=== PATIENT | female | born 1940 | race Caucasian/White ===

== ENCOUNTER 2022-12-02 11:35 | Inpatient (IN) | payer OTHER, MEDICAID ==
[2022-12-02] VITALS (9 sets, daily range): BP systolic 72–102; BP diastolic 40–60; PULSE 60–84; RESP 16–18; TEMP 97.4–98.7; O2SAT 92–99
[~2022-12-02] VITALS: Ht 162.6 cm; Wt 72.1 kg
[2022-12-02] MEDS ORDERED: NACL 0.9% 1,000 ML IV SCH (11:55)
[2022-12-02] MEDS ORDERED: cefTRIAXone 1,000 MG in DEXT 5% MINI-BAG PLUS 50 ML IV ONE (11:55)
[2022-12-02] MEDS ORDERED: cefTRIAXone 1,000 MG VIAL ONE (12:27)
[2022-12-02 12:38] LABS: BASOPHILS % (AUTO) 0.3 % (0.0-2.0); HEMATOCRIT 42.5 % (36-48); HEMOGLOBIN 14.2 g/dL (12.0-16.0); LYMPHOCYTES # (AUTO) 1.2 K/uL (2.5-16.5); LYMPHOCYTES % (AUTO) 15.5 % (20.5-51.1); MEAN CORPUSCULAR HEMOGLOBIN 30 pg (27-31); MEAN CORPUSCULAR HGB CONC 34 g/dL (33-37); MEAN CORPUSCULAR VOLUME 89.3 fL (80-94); MONOCYTES # (AUTO) 0.6 K/uL (0.8-1.0); MONOCYTES % (AUTO) 8.1 % (1.7-9.3); NEUTROPHILS % (AUTO) 76.1 % (42.2-75.2); PLATELET COUNT (AUTO) 116 K/uL (140-450); RED BLOOD CELL COUNT(AUTO) 4.76 MIL/uL (4.20-5.40); RED CELL DISTRIBUTION WIDTH 15.1 % (11.6-13.7); WHITE BLOOD COUNT (AUTO) 7.9 K/uL (4.8-10.8)
[2022-12-02 12:55] LABS: ALANINE AMINOTRANSFERASE 22 U/L (12-78); ALKALINE PHOSPHATASE 93 U/L (50-136); ANION GAP 13.2 (8-16); ASPARTATE AMINOTRANSFERASE 57 U/L (15-37); CALCIUM 8.8 mg/dL (8.5-10.1); CARBON DIOXIDE 30.1 mmol/L (21-32); CHLORIDE 89 mmol/L (98-107); CREATININE 3.4 mg/dL (0.6-1.3); GLUCOSE 110 mg/dL (74-106); POTASSIUM 5.3 mmol/L (3.5-5.1); SODIUM SERUM 127 mmol/L (136-145); TOTAL BILIRUBIN 0.7 mg/dL (0.0-1.0); TOTAL PROTEIN, SERUM 9.4 g/dL (6.4-8.2)
[2022-12-02 13:21] LABS: FLU A ANTIGEN negative (NEGATIVE); FLU B ANTIGEN NEGATIVE (NEGATIVE)
[2022-12-02 13:27] LABS: UREA NITROGEN, BLOOD 76 mg/dL (7-18)
[2022-12-02 13:33] LABS: INR 1.22 (0.8-1.2); PARTIAL THROMBOPLASTIN TIME 41.6 secs (22-35.6); PROTHROMBIN TIME 12.7 secs (10.8-13.4)
[2022-12-02] MEDS ORDERED: NACL 0.9% 1,000 ML IV ONE (14:10)
[2022-12-02] MEDS ORDERED: SODIUM ZIRCONIUM CYCLOSILICATE 10 GM POWD.PACK PO ONE (14:10)
[2022-12-02] MEDS ORDERED: ASPIRIN 81 MG TAB.CHEW PO ONE (14:20)
[2022-12-02] MEDS ORDERED: MAG SULF 2000 MG/WATER PREMIX 50 ML IV PRN (15:05)
[2022-12-02] MEDS ORDERED: ACETAMINOPHEN 325 MG TAB PO PRN (15:05)
[2022-12-02] MEDS ORDERED: DOCUSATE SODIUM 100 MG GELCAP PO PRN (15:05)
[2022-12-02] MEDS ORDERED: ZOLPIDEM 10 MG TAB PO PRN (15:05)
[2022-12-02] MEDS ORDERED: POTASSIUM CHLORIDE 10 MEQ TABER PO PRN (15:05)
[2022-12-02] MEDS ORDERED: LORazepam 2 MG/ML VIAL IVP PRN (15:05)
[2022-12-02] MEDS ORDERED: ONDANSETRON 4 MG/2 ML VIAL IVP PRN (15:05)
[2022-12-02] MEDS ORDERED: MORPHINE SULFATE 2 MG/ML SYR IVP PRN (15:05)
[2022-12-02] MEDS ORDERED: DEXTROSE 50% 50 ML SYR IVP PRN (15:10)
[2022-12-02] MEDS ORDERED: FUROSEMIDE 40 MG/4 ML VIAL IVP SCH (15:25)
[2022-12-02] MEDS ORDERED: SODIUM ZIRCONIUM CYCLOSILICATE 10 GM POWD.PACK PO SCH (15:27)
[2022-12-02] MEDS ORDERED: ASPIRIN 81 MG TAB.CHEW ONE (15:55)
[2022-12-02] MEDS: BLOOD GLUCOSE MONITORING 1 DEV DEV FS SCH ×2 (16:36→21:43)
[2022-12-02] MEDS ORDERED: LYR25 PO (17:07)
[2022-12-02] MEDS ORDERED: GABA300C PO (17:07)
[2022-12-02] MEDS ORDERED: DOCU-2 PO (17:07)
[2022-12-02] MEDS ORDERED: [UNRECOGNIZED DRUG - CODE] PO (17:07)
[2022-12-02] MEDS ORDERED: METO50TA20 PO (17:07)
[2022-12-02] MEDS ORDERED: DEXT1DRO4 OP (17:07)
[2022-12-02] MEDS ORDERED: INSU100V19 SQ (17:07)
[2022-12-02] MEDS ORDERED: CHOL400T PO (17:07)
[2022-12-02] MEDS ORDERED: SENN-72 PO (17:07)
[2022-12-02] MEDS ORDERED: LEVO25CA2 PO (17:07)
[2022-12-02] MEDS ORDERED: TRAZ-344 PO (17:07)
[2022-12-02] MEDS ORDERED: HUM SUBQ (17:07)
[2022-12-02] MEDS ORDERED: FURO-570 PO (17:07)
[2022-12-02] MEDS ORDERED: ROPI1TAB40 PO (17:07)
[2022-12-02] MEDS ORDERED: ACET-8905 PO (17:07)
[2022-12-02] MEDS: PIPERACILLIN/TAZOBACTAM 2.25 GM in DEXTROSE 5% 50 ML IV SCH (21:45)
[2022-12-03] VITALS (11 sets, daily range): BP systolic 112–149; BP diastolic 64–95; PULSE 61–88; RESP 15–20; TEMP 96.9–98.7; O2SAT 95–100
[2022-12-03] MEDS: PIPERACILLIN/TAZOBACTAM 2.25 GM in DEXTROSE 5% 50 ML IV SCH ×3 (05:36→20:59)
[2022-12-03] MEDS: BLOOD GLUCOSE MONITORING 1 DEV DEV FS SCH ×4 (06:40→21:07)
[2022-12-03 06:58] LABS: BASOPHILS % (AUTO) 0.3 % (0.0-2.0); EOSINOPHILS % (AUTO) 0.1 % (0.0-4.0); HEMATOCRIT 40.7 % (36-48); HEMOGLOBIN 13.5 g/dL (12.0-16.0); LYMPHOCYTES # (AUTO) 1.3 K/uL (2.5-16.5); LYMPHOCYTES % (AUTO) 23.2 % (20.5-51.1); MEAN CORPUSCULAR HEMOGLOBIN 30 pg (27-31); MEAN CORPUSCULAR HGB CONC 33 g/dL (33-37); MEAN CORPUSCULAR VOLUME 90.4 fL (80-94); MONOCYTES # (AUTO) 0.5 K/uL (0.8-1.0); MONOCYTES % (AUTO) 9.3 % (1.7-9.3); NEUTROPHILS # (AUTO) 3.7 K/uL (1.8-7.7); NEUTROPHILS % (AUTO) 67.1 % (42.2-75.2); PLATELET COUNT (AUTO) 94 K/uL (140-450); RED CELL DISTRIBUTION WIDTH 15.5 % (11.6-13.7); WHITE BLOOD COUNT (AUTO) 5.4 K/uL (4.8-10.8)
[2022-12-03 07:09] LABS: ANION GAP 11.2 (8-16); CALCIUM 8.4 mg/dL (8.5-10.1); CHLORIDE 95 mmol/L (98-107); CREATININE 3.3 mg/dL (0.6-1.3); GLUCOSE 133 mg/dL (74-106); POTASSIUM 3.2 mmol/L (3.5-5.1); SODIUM SERUM 135 mmol/L (136-145)
[2022-12-03 07:14] LABS: UREA NITROGEN, BLOOD 79 mg/dL (7-18)
[2022-12-03] MEDS: ASPIRIN 81 MG TAB.CHEW PO SCH (09:18)
[2022-12-03] MEDS: INSULIN LISPRO SLIDING SCALE 100 UNITS/ML VIAL SUBQ PRN (11:29)
[2022-12-03 20:59] LABS: MAGNESIUM 1.7 mg/dL (1.8-2.4); PHOSPHORUS 4.6 mg/dL (2.5-4.9)
[2022-12-03] MEDS: rOPINIRole 1 MG TAB PO SCH (21:00)
[2022-12-03] MEDS ORDERED: FUROSEMIDE 40 MG TAB PO SCH (21:00)
[2022-12-03] MEDS: traZODone 50 MG TAB PO SCH (21:00)
[2022-12-03] MEDS: GABAPENTIN 300 MG CAP PO SCH (21:01)
[2022-12-03] MEDS: SENNA 8.6 MG TAB PO SCH (21:01)
[2022-12-04] VITALS (7 sets, daily range): BP systolic 117–148; BP diastolic 71–83; PULSE 78–98; RESP 18–19; TEMP 97.4–99.4; O2SAT 96–99
[2022-12-04 01:21] LABS: APPEARANCE,URINE CLEAR (CLEAR); BILIRUBIN,URINE NEGATIVE (NEGATIVE); BLOOD, URINE 1+ (NEGATIVE); COLOR,URINE YELLOW (YELLOW); LEUKOCYTE ESTERASE ,URINE 3+ (NEGATIVE); NITRITE, URINE NEGATIVE (NEGATIVE); PH,URINE 6.5 (5.0-9.0); PROTEIN,URINE 1+ (NEGATIVE); UGLUCOSE NEGATIVE (NEGATIVE); UROBILINOGEN,URINE 0.2 EU/dL (0.2 - 1)
[2022-12-04 01:28] LABS: RBC,URINE 11-20 (MOD) /HPF (0-5); WBC,URINE 80-100 /HPF (0-5)
[2022-12-04 01:29] LABS: BACTERIA,URINE 1+ /HPF (None Seen); MUCUS,URINE 2+ /LPF (None Seen); SQUAMOUS EPITHELIAL CELL,UR 0-3 (FEW) /LPF (0-3 (FEW)); TRICHOMONAS,URINE None Seen /HPF (None Seen); YEAST,URINE None Seen /HPF (None Seen)
[2022-12-04] MEDS: PIPERACILLIN/TAZOBACTAM 2.25 GM in DEXTROSE 5% 50 ML IV SCH ×3 (05:48→20:54)
[2022-12-04] MEDS: BLOOD GLUCOSE MONITORING 1 DEV DEV FS SCH ×4 (06:44→20:54)
[2022-12-04 07:37] LABS: BASOPHILS % (AUTO) 0.4 % (0.0-2.0); EOSINOPHILS % (AUTO) 0.3 % (0.0-4.0); HEMATOCRIT 42.3 % (36-48); HEMOGLOBIN 14.3 g/dL (12.0-16.0); LYMPHOCYTES # (AUTO) 1.4 K/uL (2.5-16.5); LYMPHOCYTES % (AUTO) 30.1 % (20.5-51.1); MEAN CORPUSCULAR HEMOGLOBIN 30 pg (27-31); MEAN CORPUSCULAR HGB CONC 34 g/dL (33-37); MEAN CORPUSCULAR VOLUME 89.4 fL (80-94); MONOCYTES # (AUTO) 0.5 K/uL (0.8-1.0); MONOCYTES % (AUTO) 10.6 % (1.7-9.3); NEUTROPHILS # (AUTO) 2.8 K/uL (1.8-7.7); NEUTROPHILS % (AUTO) 58.6 % (42.2-75.2); PLATELET COUNT (AUTO) 91 K/uL (140-450); RED BLOOD CELL COUNT(AUTO) 4.73 MIL/uL (4.20-5.40); RED CELL DISTRIBUTION WIDTH 15.3 % (11.6-13.7); WHITE BLOOD COUNT (AUTO) 4.7 K/uL (4.8-10.8)
[2022-12-04 08:03] LABS: ANION GAP 12.1 (8-16); CALCIUM 8.7 mg/dL (8.5-10.1); CARBON DIOXIDE 30.9 mmol/L (21-32); CHLORIDE 93 mmol/L (98-107); CREATININE 2.8 mg/dL (0.6-1.3); GLUCOSE 103 mg/dL (74-106); SODIUM SERUM 132 mmol/L (136-145)
[2022-12-04 08:05] LABS: UREA NITROGEN, BLOOD 64 mg/dL (7-18)
[2022-12-04] MEDS: GABAPENTIN 300 MG CAP PO SCH ×2 (08:48→20:55)
[2022-12-04] MEDS: METOPROLOL 50 MG TAB PO SCH (08:48)
[2022-12-04] MEDS: PREGABALIN 25 MG CAP PO SCH (08:48)
[2022-12-04] MEDS: ASPIRIN 81 MG TAB.CHEW PO SCH (08:49)
[2022-12-04] MEDS: rOPINIRole 1 MG TAB PO SCH ×4 (08:49→20:56)
[2022-12-04] MEDS: FUROSEMIDE 40 MG/4 ML VIAL IVP SCH ×2 (09:34→16:51)
[2022-12-04 10:02] LABS: BLOOD GAS PCO2 43.6 mmHg (35-45); BLOOD GAS PH 7.413 (7.35-7.45)
[2022-12-04 10:03] LABS: BLOOD GAS BASE EXCESS 2.2 mmol/L (-2.0-2.0); BLOOD GAS HCO3 27.2 mmol/L (22-26); BLOOD GAS PO2 53.6 mmHg (75-100)
[2022-12-04 10:04] LABS: BLOOD GAS O2 SAT% 89.7 % (92.0-98.5)
[2022-12-04] MEDS: INSULIN LISPRO SLIDING SCALE 100 UNITS/ML VIAL SUBQ PRN (11:32)
[2022-12-04] MEDS: traZODone 50 MG TAB PO SCH (20:54)
[2022-12-04] MEDS: SENNA 8.6 MG TAB PO SCH (20:55)
[2022-12-05 04:00] VITALS: BP 128/68; PULSE 81; RESP 18; TEMP 98.6; O2SAT 98
[2022-12-05] MEDS: PIPERACILLIN/TAZOBACTAM 2.25 GM in DEXTROSE 5% 50 ML IV SCH ×3 (04:43→20:51)
[2022-12-05] MEDS: BLOOD GLUCOSE MONITORING 1 DEV DEV FS SCH ×4 (06:31→20:50)
[2022-12-05 06:41] LABS: ANION GAP 10.6 (8-16); CALCIUM 8.6 mg/dL (8.5-10.1); CARBON DIOXIDE 32.5 mmol/L (21-32); CHLORIDE 92 mmol/L (98-107); GLUCOSE 109 mg/dL (74-106); POTASSIUM 4.1 mmol/L (3.5-5.1); SODIUM SERUM 131 mmol/L (136-145)
[2022-12-05 06:44] LABS: UREA NITROGEN, BLOOD 62 mg/dL (7-18)
[2022-12-05 06:53] LABS: BASOPHILS % (AUTO) 0.3 % (0.0-2.0); EOSINOPHILS % (AUTO) 0.1 % (0.0-4.0); HEMATOCRIT 41.4 % (36-48); HEMOGLOBIN 13.9 g/dL (12.0-16.0); LYMPHOCYTES # (AUTO) 1.5 K/uL (2.5-16.5); MEAN CORPUSCULAR HEMOGLOBIN 30 pg (27-31); MEAN CORPUSCULAR HGB CONC 34 g/dL (33-37); MEAN CORPUSCULAR VOLUME 90.1 fL (80-94); MONOCYTES # (AUTO) 0.5 K/uL (0.8-1.0); MONOCYTES % (AUTO) 13.5 % (1.7-9.3); NEUTROPHILS # (AUTO) 1.7 K/uL (1.8-7.7); NEUTROPHILS % (AUTO) 46.1 % (42.2-75.2); PLATELET COUNT (AUTO) 78 K/uL (140-450); RED BLOOD CELL COUNT(AUTO) 4.59 MIL/uL (4.20-5.40); RED CELL DISTRIBUTION WIDTH 15.1 % (11.6-13.7); WHITE BLOOD COUNT (AUTO) 3.7 K/uL (4.8-10.8)
[2022-12-05 08:00] VITALS: PULSE 85; RESP 18; O2SAT 96
[2022-12-05] MEDS: PREGABALIN 25 MG CAP PO SCH (09:55)
[2022-12-05] MEDS: GABAPENTIN 300 MG CAP PO SCH ×2 (09:55→20:51)
[2022-12-05] MEDS: FUROSEMIDE 40 MG/4 ML VIAL IVP SCH (09:55)
[2022-12-05] MEDS: ASPIRIN 81 MG TAB.CHEW PO SCH (09:55)
[2022-12-05] MEDS: METOPROLOL 50 MG TAB PO SCH (09:55)
[2022-12-05] MEDS: rOPINIRole 1 MG TAB PO SCH ×4 (10:08→20:52)
[2022-12-05 13:45] VITALS: PULSE 59; RESP 24; O2SAT 96
[2022-12-05] MEDS: ALBUTEROL 0.083% 2.5 MG/3 ML NEBU INH PRN ×2 (13:45→19:14)
[2022-12-05 19:14] VITALS: PULSE 77; RESP 22; O2SAT 97
[2022-12-05 20:00] VITALS: BP 123/53; PULSE 78; PULSE 85; RESP 18; TEMP 97.4; O2SAT 100
[2022-12-05] MEDS: traZODone 50 MG TAB PO SCH (20:51)
[2022-12-05] MEDS: SENNA 8.6 MG TAB PO SCH (20:54)
[2022-12-06 04:00] VITALS: BP 120/77; PULSE 80; RESP 18; TEMP 97.3; O2SAT 97
[2022-12-06] MEDS: PIPERACILLIN/TAZOBACTAM 2.25 GM in DEXTROSE 5% 50 ML IV SCH ×3 (04:23→20:33)
[2022-12-06] MEDS: LEVOTHYROXINE 0.025 MG TAB PO SCH (05:37)
[2022-12-06] MEDS: BLOOD GLUCOSE MONITORING 1 DEV DEV FS SCH ×4 (06:22→20:26)
[2022-12-06 06:35] LABS: ANION GAP 10.9 (8-16); CALCIUM 8.7 mg/dL (8.5-10.1); CARBON DIOXIDE 32.5 mmol/L (21-32); CHLORIDE 91 mmol/L (98-107); CREATININE 3.3 mg/dL (0.6-1.3); GLUCOSE 98 mg/dL (74-106); POTASSIUM 4.4 mmol/L (3.5-5.1); SODIUM SERUM 130 mmol/L (136-145)
[2022-12-06 06:38] LABS: BASOPHILS % (AUTO) 0.3 % (0.0-2.0); EOSINOPHILS % (AUTO) 0.1 % (0.0-4.0); HEMOGLOBIN 13.6 g/dL (12.0-16.0); LYMPHOCYTES # (AUTO) 1.4 K/uL (2.5-16.5); LYMPHOCYTES % (AUTO) 44.6 % (20.5-51.1); MEAN CORPUSCULAR HEMOGLOBIN 30 pg (27-31); MEAN CORPUSCULAR HGB CONC 33 g/dL (33-37); MONOCYTES # (AUTO) 0.4 K/uL (0.8-1.0); MONOCYTES % (AUTO) 13.3 % (1.7-9.3); NEUTROPHILS # (AUTO) 1.3 K/uL (1.8-7.7); NEUTROPHILS % (AUTO) 41.7 % (42.2-75.2); PLATELET COUNT (AUTO) 76 K/uL (140-450); RED BLOOD CELL COUNT(AUTO) 4.56 MIL/uL (4.20-5.40); RED CELL DISTRIBUTION WIDTH 15.2 % (11.6-13.7); WHITE BLOOD COUNT (AUTO) 3.1 K/uL (4.8-10.8)
[2022-12-06 06:41] LABS: UREA NITROGEN, BLOOD 66 mg/dL (7-18)
[2022-12-06 08:00] VITALS: PULSE 83; RESP 18; O2SAT 98
[2022-12-06] MEDS: ASPIRIN 81 MG TAB.CHEW PO SCH (08:35)
[2022-12-06] MEDS: METOPROLOL 50 MG TAB PO SCH (08:36)
[2022-12-06] MEDS: PANTOPRAZOLE 40 MG TABEC PO SCH (08:36)
[2022-12-06] MEDS: GABAPENTIN 300 MG CAP PO SCH ×2 (08:36→20:27)
[2022-12-06] MEDS: PREGABALIN 25 MG CAP PO SCH (08:36)
[2022-12-06] MEDS: rOPINIRole 1 MG TAB PO SCH ×4 (08:38→20:29)
[2022-12-06] MEDS ORDERED: FUROSEMIDE 40 MG/4 ML VIAL IVP SCH ×2 (09:00→17:00)
[2022-12-06] MEDS: INSULIN LISPRO SLIDING SCALE 100 UNITS/ML VIAL SUBQ PRN ×2 (12:11→20:27)
[2022-12-06 17:04] VITALS: PULSE 75; RESP 18; O2SAT 96
[2022-12-06] MEDS: ALBUTEROL 0.083% 2.5 MG/3 ML NEBU INH PRN (17:04)
[2022-12-06 20:00] VITALS: BP 116/56; PULSE 80; PULSE 83; RESP 18; TEMP 97.2; O2SAT 96
[2022-12-06] MEDS: ISOSORBIDE DINITRATE 10 MG TAB PO SCH (20:27)
[2022-12-06] MEDS: hydrALAZINE 10 MG TAB PO SCH (20:28)
[2022-12-06] MEDS: APIXABAN 2.5 MG TAB PO SCH ×2 (20:28→20:33)
[2022-12-06] MEDS: SENNA 8.6 MG TAB PO SCH (20:28)
[2022-12-06] MEDS: traZODone 50 MG TAB PO SCH (20:29)
[2022-12-07] VITALS (7 sets, daily range): BP systolic 95–108; BP diastolic 49–65; PULSE 56–74; RESP 18–20; TEMP 96.3–97.8; O2SAT 94–99
[2022-12-07] MEDS: PIPERACILLIN/TAZOBACTAM 2.25 GM in DEXTROSE 5% 50 ML IV SCH (04:58)
[2022-12-07] MEDS: hydrALAZINE 10 MG TAB PO SCH ×3 (04:58→20:45)
[2022-12-07] MEDS: ISOSORBIDE DINITRATE 10 MG TAB PO SCH ×3 (04:58→20:46)
[2022-12-07] MEDS: LEVOTHYROXINE 0.025 MG TAB PO SCH (05:39)
[2022-12-07] MEDS: BLOOD GLUCOSE MONITORING 1 DEV DEV FS SCH ×4 (06:33→20:45)
[2022-12-07 07:17] LABS: BASOPHILS % (AUTO) 0.2 % (0.0-2.0); HEMATOCRIT 37.7 % (36-48); HEMOGLOBIN 12.5 g/dL (12.0-16.0); LYMPHOCYTES # (AUTO) 1.5 K/uL (2.5-16.5); LYMPHOCYTES % (AUTO) 43.4 % (20.5-51.1); MEAN CORPUSCULAR HEMOGLOBIN 30 pg (27-31); MEAN CORPUSCULAR HGB CONC 33 g/dL (33-37); MONOCYTES # (AUTO) 0.4 K/uL (0.8-1.0); MONOCYTES % (AUTO) 11.7 % (1.7-9.3); NEUTROPHILS # (AUTO) 1.5 K/uL (1.8-7.7); NEUTROPHILS % (AUTO) 44.7 % (42.2-75.2); PLATELET COUNT (AUTO) 85 K/uL (140-450); RED BLOOD CELL COUNT(AUTO) 4.19 MIL/uL (4.20-5.40); WHITE BLOOD COUNT (AUTO) 3.4 K/uL (4.8-10.8)
[2022-12-07 07:18] LABS: ANION GAP 10.2 (8-16); CALCIUM 8.5 mg/dL (8.5-10.1); CARBON DIOXIDE 32.1 mmol/L (21-32); CHLORIDE 91 mmol/L (98-107); GLUCOSE 117 mg/dL (74-106); POTASSIUM 4.3 mmol/L (3.5-5.1); SODIUM SERUM 129 mmol/L (136-145)
[2022-12-07 07:40] LABS: UREA NITROGEN, BLOOD 76 mg/dL (7-18)
[2022-12-07 07:41] LABS: CREATININE 4.1 mg/dL (0.6-1.3)
[2022-12-07] MEDS: APIXABAN 2.5 MG TAB PO SCH ×3 (09:00→20:45)
[2022-12-07] MEDS: METOPROLOL SUCCINATE 50 MG TABER PO SCH (09:00)
[2022-12-07] MEDS: PREGABALIN 25 MG CAP PO SCH (09:01)
[2022-12-07] MEDS: rOPINIRole 1 MG TAB PO SCH ×4 (09:01→20:47)
[2022-12-07] MEDS: PANTOPRAZOLE 40 MG TABEC PO SCH (09:02)
[2022-12-07] MEDS: ALBUTEROL 0.083% 2.5 MG/3 ML NEBU INH PRN ×2 (10:58→11:37)
[2022-12-07] MEDS: INSULIN LISPRO SLIDING SCALE 100 UNITS/ML VIAL SUBQ PRN (12:12)
[2022-12-07] MEDS: AMOXICILLIN 500 MG CAP PO SCH (20:42)
[2022-12-07] MEDS: SENNA 8.6 MG TAB PO SCH (20:42)
[2022-12-07] MEDS: traZODone 50 MG TAB PO SCH (20:45)
[2022-12-08 04:00] VITALS: BP 128/77; PULSE 100; RESP 18; TEMP 97.5; O2SAT 99
[2022-12-08] MEDS: hydrALAZINE 10 MG TAB PO SCH ×2 (05:30→13:14)
[2022-12-08] MEDS: ISOSORBIDE DINITRATE 10 MG TAB PO SCH ×2 (05:30→13:14)
[2022-12-08] MEDS: LEVOTHYROXINE 0.025 MG TAB PO SCH (05:32)
[2022-12-08] MEDS: BLOOD GLUCOSE MONITORING 1 DEV DEV FS SCH ×2 (06:38→11:59)
[2022-12-08 06:56] LABS: BASOPHILS % (AUTO) 0.3 % (0.0-2.0); EOSINOPHILS % (AUTO) 0.4 % (0.0-4.0); HEMATOCRIT 52.4 % (36-48); HEMOGLOBIN 17.1 g/dL (12.0-16.0); LYMPHOCYTES # (AUTO) 1.5 K/uL (2.5-16.5); LYMPHOCYTES % (AUTO) 51.9 % (20.5-51.1); MEAN CORPUSCULAR HEMOGLOBIN 30 pg (27-31); MEAN CORPUSCULAR HGB CONC 33 g/dL (33-37); MEAN CORPUSCULAR VOLUME 90.1 fL (80-94); MONOCYTES # (AUTO) 0.3 K/uL (0.8-1.0); NEUTROPHILS # (AUTO) 1.1 K/uL (1.8-7.7); NEUTROPHILS % (AUTO) 38.4 % (42.2-75.2); PLATELET COUNT (AUTO) 58 K/uL (140-450); RED BLOOD CELL COUNT(AUTO) 5.81 MIL/uL (4.20-5.40); RED CELL DISTRIBUTION WIDTH 15.4 % (11.6-13.7); WHITE BLOOD COUNT (AUTO) 2.9 K/uL (4.8-10.8)
[2022-12-08 07:24] LABS: ANION GAP 11.9 (8-16); CALCIUM 8.9 mg/dL (8.5-10.1); CARBON DIOXIDE 31.4 mmol/L (21-32); CHLORIDE 91 mmol/L (98-107); CREATININE 3.8 mg/dL (0.6-1.3); GLUCOSE 115 mg/dL (74-106); POTASSIUM 4.3 mmol/L (3.5-5.1); SODIUM SERUM 130 mmol/L (136-145)
[2022-12-08 07:29] LABS: UREA NITROGEN, BLOOD 77 mg/dL (7-18)
[2022-12-08 08:00] VITALS: PULSE 58; RESP 18; O2SAT 94
[2022-12-08 08:41] VITALS: O2SAT 100
[2022-12-08 09:00] VITALS: PULSE 58; RESP 18; O2SAT 100
[2022-12-08] MEDS: AMOXICILLIN 500 MG CAP PO SCH (09:17)
[2022-12-08] MEDS: PREGABALIN 25 MG CAP PO SCH (09:17)
[2022-12-08] MEDS: METOPROLOL SUCCINATE 50 MG TABER PO SCH (09:18)
[2022-12-08] MEDS: PANTOPRAZOLE 40 MG TABEC PO SCH (09:18)
[2022-12-08] MEDS: rOPINIRole 1 MG TAB PO SCH ×2 (09:19→13:14)
[2022-12-08] MEDS ORDERED: APR10 PO (10:41)
[2022-12-08] MEDS ORDERED: GABA300C PO (10:41)
[2022-12-08] MEDS ORDERED: ISOS10TA9 PO (10:41)
[2022-12-08] MEDS ORDERED: HUMSLIDE SUBQ (10:41)
[2022-12-08] MEDS ORDERED: AMOX500C25 PO (10:41)
[2022-12-08] MEDS ORDERED: APIX2.5 PO (10:41)
[2022-12-08 10:53] LABS: BASOPHILS % (AUTO) 0.3 % (0.0-2.0); EOSINOPHILS % (AUTO) 0.5 % (0.0-4.0); HEMATOCRIT 37.1 % (36-48); HEMOGLOBIN 12.4 g/dL (12.0-16.0); LYMPHOCYTES # (AUTO) 1.5 K/uL (2.5-16.5); MEAN CORPUSCULAR HEMOGLOBIN 30 pg (27-31); MEAN CORPUSCULAR HGB CONC 33 g/dL (33-37); MEAN CORPUSCULAR VOLUME 89.2 fL (80-94); MONOCYTES # (AUTO) 0.4 K/uL (0.8-1.0); MONOCYTES % (AUTO) 12.6 % (1.7-9.3); NEUTROPHILS # (AUTO) 1.4 K/uL (1.8-7.7); NEUTROPHILS % (AUTO) 40.6 % (42.2-75.2); PLATELET COUNT (AUTO) 95 K/uL (140-450); RED BLOOD CELL COUNT(AUTO) 4.17 MIL/uL (4.20-5.40); RED CELL DISTRIBUTION WIDTH 14.9 % (11.6-13.7); WHITE BLOOD COUNT (AUTO) 3.3 K/uL (4.8-10.8)
[2022-12-08] MEDS: INSULIN LISPRO SLIDING SCALE 100 UNITS/ML VIAL SUBQ PRN (12:04)
[2022-12-08] MEDS ORDERED: APIXABAN 2.5 MG TAB PO SCH (21:00)
== END 2022-12-08 15:10 | DRG 193 ==
LOC: MED 11:35 → MTU 15:04
PROVIDERS: ADMIT Family Medicine; ATTEND Family Medicine
DX: J15.9 Unspecified bacterial pneumonia (principal); I50.43 Acute on chronic combined systolic (congestive) and diastolic (congestive) heart failure; J96.21 Acute and chronic respiratory failure with hypoxia; I13.0 Hypertensive heart and chronic kidney disease with heart failure and stage 1 through stage 4 chronic kidney disease, or unspecified chronic kidney disease; N39.0 Urinary tract infection, site not specified; E44.0 Moderate protein-calorie malnutrition; E87.1 Hypo-osmolality and hyponatremia; I48.20 Chronic atrial fibrillation, unspecified; I42.9 Cardiomyopathy, unspecified; N18.4 Chronic kidney disease, stage 4 (severe); Z20.822 Contact with and (suspected) exposure to COVID-19; D69.6 Thrombocytopenia, unspecified; E87.6 Hypokalemia; E87.5 Hyperkalemia; E03.9 Hypothyroidism, unspecified; I48.0 Paroxysmal atrial fibrillation; B96.20 Unspecified Escherichia coli [E. coli] as the cause of diseases classified elsewhere; E11.22 Type 2 diabetes mellitus with diabetic chronic kidney disease; Y95 Nosocomial condition; Z68.27 Body mass index [BMI] 27.0-27.9, adult
CPT/HCPCS: 36415; 36600; 71045; 76770; 80048; 80053; 81001; 82570; 82803; 82948; 83605; 83735; 83880; 84100; 84300; 84484; 85025; 85610; 85730; 87040; 87081; 87086; 93005; 94640; 96374; 96375; 99291; J0696; J1815; J1940; J2543; J3475; J7060; J7613; Q0092